=== PATIENT | male | born 1990 | race Two or more races ===

== ENCOUNTER 2017-08-03 08:40 | Emergency (ER) | payer OTHER ==
[~2017-08-03] VITALS: Ht 172.7 cm; Wt 77.0 kg
[2017-08-03 08:40] VITALS: BP 128/84
[2017-08-03 09:24] LABS: CULTURE INDICATED? YES; MICROSCOPIC INDICATED
== END 2017-08-03 09:59 | disposition home or self-care (01) ==
LOC: ED 09:53
DX: R30.0 Dysuria (principal)
CPT/HCPCS: 81001; 87077; 87086; 87186; 99284